=== PATIENT | female | born 1990 | race Asian ===

== ENCOUNTER 2020-12-04 19:25 | Emergency (ER) | payer OTHER ==
[~2020-12-04] VITALS: Ht 165.1 cm; Wt 58.2 kg
[2020-12-04 19:37] VITALS: TEMP 99.3
[2020-12-04] MEDS ORDERED: NORCO 325 MG-51 TAB PO (20:19)
[2020-12-04 20:29] VITALS: BP 126/75; PULSE 76
== END 2020-12-04 20:29 | disposition home or self-care (01) ==
LOC: COL.ER 19:25
DX: T21.21XA Burn of second degree of chest wall, initial encounter (principal); T22.10XA Burn of first degree of shoulder and upper limb, except wrist and hand, unspecified site, initial encounter; T79.9XXA Unspecified early complication of trauma, initial encounter; X11.8XXA Contact with other hot tap-water, initial encounter